=== PATIENT | male | born 2000 | race Caucasian/White ===

== ENCOUNTER 2024-03-03 10:49 | Emergency (ER) | payer SELFPAY ==
[2024-03-03 11:25] LABS: Absolute Eosinophils 0.2 K/uL (0-0.5); Absolute Monocytes 0.5 K/uL (0.1-1.3); Basophils % 0.7 % (0-1.3); Eosinophils % 2.9 % (0-4.4); Hematocrit 41.3 % (39.6-49.0); Hemoglobin 13.9 g/dL (13.6-17.9); Lymphocytes % 30.3 % (15.3-44.8); MCH 29.4 pg (27.0-35.0); MCHC 33.7 g/dL (32.0-36.0); MCV 87.2 fL (80-100); MPV 8.4 fL (7.6-11.3); Monocytes % 6.8 % (3.3-12.3); Neutrophils % 59.3 % (41.7-73.7); Platelets 302 thou/uL (152-406); RBC Red Blood Cell Count 4.74 M/uL (4.33-5.43); Red Cell Distribution Width 12.3 % (12.1-15.2)
[2024-03-03 11:44] LABS: Troponin High Sensitivity 5.4 pg/mL (<58.9)
--- NOTE | 2024-03-03 12:41 | RAD REPORT ---
EXAM DESCRIPTION: RAD - Chest Single View - 03/03/2024 12:37 pm CLINICAL HISTORY: CHEST PAIN Chest pain. COMPARISON: No comparisons FINDINGS: Portable technique limits examination quality. The lungs are grossly clear. The heart is normal in size. No displaced fractures. IMPRESSION: No acute intrathoracic process suspected.
--- NOTE | 2024-03-03 13:28 | EDPHYS ---
Physician Documentation [facility] Name: Troy Aragon Age: 23 yrs Sex: Male : 2000 Arrival Date: 03/03/2024 Time: 10:49 Bed 17 Private MD: ED Physician Madhu Haywood HPI: 03/03 12:13 This 23 yrs old Male presents to ER via EMS with complaints of chest pain. rn 12:13 The patient or guardian reports chest pain that is located primarily in the substernal rn area. The pain does not radiate. The chest pain is described as a pressure. Duration: The patient or guardian reports a single episode. Modifying factors: The symptoms are alleviated by nothing. the symptoms are aggravated by nothing. Severity of pain: At its worst the pain was mild in the emergency department the pain has improved. The patient has not experienced similar symptoms in the past. Patient reports anterior chest pressure, happened while at work. No fever or chills. No cough. No hemoptysis. Patient reports pressures slightly improving on its own. No family history of early cardiac disease. Patient has never had this before. Does not feel like acid reflux. No shortness of breath. Patient reports has anxiety but not sure if this is anxiety. No abdominal pain.. Historical: - Allergies: 13:11 Propofol; kj2 - PMHx: 13:11 Panic attack; kj2 - Immunization history:: Adult Immunizations unknown, Client reports receiving the 2nd dose of the Covid vaccine. - Infectious Disease History:: Denies. - Social history:: Smoking status: unknown. - Family history:: not pertinent. - Hospitalizations: : No recent hospitalization is reported. ROS: 12:13 Constitutional: Negative for fever, chills, and weight loss, Cardiovascular: Negative rn for palpitations, and edema, Respiratory: Negative for shortness of breath, cough, wheezing, and pleuritic chest pain, Abdomen/GI: Negative for abdominal pain, nausea, vomiting, diarrhea, and constipation, MS/Extremity: Negative for injury and deformity, Skin: Negative for injury, rash, and discoloration, Neuro: Negative for headache, weakness, numbness, tingling, and seizure, Exam: 12:13 Constitutional: This is a well developed, well nourished patient who is awake, alert, rn and in no acute distress. Chest/axilla: Normal chest wall appearance and motion. Nontender with no deformity. No lesions are appreciated. Cardiovascular: Regular rate and rhythm. No pulse deficits. Respiratory: No increased work of breathing, no retractions or nasal flaring. Abdomen/GI: Soft, non-tender MS/ Extremity: Pulses equal, no cyanosis. Neuro: Awake and alert, GCS 15 13:26 ECG was reviewed by the Attending Physician. rn Vital Signs: 11:00 BP 127 / 79; Pulse 75; Resp 20; Temp 98; Pulse Ox 100% on R/A; Weight 90.72 kg; Height kj2 5 ft. 9 in. ; Pain 4/10; 11:00 BP 127 / 79; Pulse 75; Resp 20; Temp 98; Pulse Ox 100% on R/A; Weight 90.72 kg; Height kj2 5 ft. 9 in. ; Pain 4/10; 12:01 BP 110 / 63; Pulse 96; Resp 20; Temp 98.2; Pulse Ox 98% on R/A; kj2 12:39 BP 124 / 80; Pulse 70; Resp 18; Pulse Ox 99% on R/A; kj2 13:46 BP 127 / 77; Pulse 61; Resp 17; Pulse Ox 99% on R/A; kj2 11:00 Body Mass Index 29.53 (90.72 kg, 175.26 cm) kj2 11:00 Pain Scale: Adult kj2 11:00 Pain Scale: Adult kj2 MDM: 10:58 Patient medically screened. rn 13:26 Differential diagnosis: acute myocardial infarction, acute pericarditis, anxiety, chest rn wall pain, costochondritis, gastritis, gastroesophageal reflux disease (GERD), pericarditis, pleurisy, pneumothorax. Data reviewed: vital signs, nurses notes, lab test result(s), EKG, radiologic studies, plain films, and as a result, I will discharge patient. Counseling: I had a detailed discussion with the patient and/or guardian regarding the historical points, exam findings, and any diagnostic results supporting the discharge/admit diagnosis, lab results, radiology results, the need for outpatient follow up, to return to the emergency department if symptoms worsen or persist or if there are any questions or concerns that arise at home. Special discussion: I discussed with the patient/guardian in detail that at this point there is no indication for admission to the hospital. It is understood, however, that if the symptoms persist or worsen the patient needs to return immediately for re-evaluation. ED course: No acute findings and workup. Chest x-ray negative. Normal vital signs. No oxygen requirement. ECG normal without ischemia. D-dimer negative.. 03/03 10:58 Order name: Basic Metabolic Panel; Complete Time: 12:08 rn 03/03 10:58 Order name: CBC with Diff; Complete Time: 12: rn 03/03 10:58 Order name: D-Dimer; Complete Time: 12: rn 03/03 10:58 Order name: NT PRO-BNP; Complete Time: 12: rn 03/03 10:58 Order name: Troponin HS; Complete Time: 12: rn 03/03 10:58 Order name: XRAY Chest (1 view); Complete Time: 13:20 rn 03/03 10:58 Order name: Cardiac monitoring; Complete Time: 11:36 rn 03/03 10:58 Order name: EKG - Nurse/Tech; Complete Time: 11:36 rn 03/03 10:58 Order name: IV Saline Lock; Complete Time: 11: rn 03/03 10:58 Order name: Labs collected and sent; Complete Time: : rn 03/03 10:58 Order name: O2 Per Protocol; Complete Time: : rn 03/03 10:58 Order name: O2 Sat Monitoring; Complete Time: 11:22 rn EC:26 Rate is 82 beats/min. Rhythm is regular. QRS [place] is Normal. MO interval is normal. QRS rn interval is normal. QT interval is normal. No Q waves. T waves are Normal. No ST changes noted. Clinical impression: Normal ECG. Interpreted by me. Reviewed by me. 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
--- NOTE | 2024-03-03 13:28 | ER ---
Nurse's Notes [facility] Name: Troy Aragon Age: 23 yrs Sex: Male : 2000 Arrival Date: 03/03/2024 Time: 10:49 Bed 17 Private MD: Diagnosis: Chest pain, unspecified Presentation: 03/03 11:00 Chief complaint: EMS states: chest pain, not radiating. Coronavirus screen: At this kj2 time, the client does not indicate any symptoms associated with coronavirus-19. Ebola Screen: No symptoms or risks identified at this time. 11:00 Method Of Arrival: EMS: [facility] kj2 11:00 Initial Sepsis Screen: Does the patient meet any 2 criteria? No. Patient's initial kj2 sepsis screen is negative. Does the patient have a suspected source of infection? No. Patient's initial sepsis screen is negative. Risk Assessment: Do you want to hurt yourself or someone else? Patient reports no desire to harm self or others. Onset of symptoms was March 02, 2024. 11:00 Acuity: ROBERT 3 kj2 Triage Assessment: 11:59 General: Appears in no apparent distress. Behavior is calm, cooperative. Pain: kj2 Complains of pain in chest Pain does not radiate. Pain currently is 4 out of 10 on a pain scale. Historical: - Allergies: 13:11 Propofol; kj2 - PMHx: 13:11 Panic attack; kj2 - Immunization history:: Adult Immunizations unknown, Client reports receiving the 2nd dose of the Covid vaccine. - Infectious Disease History:: Denies. - Social history:: Smoking status: unknown. - Family history:: not pertinent. - Hospitalizations: : No recent hospitalization is reported. Screenin:37 [facility] ED Fall Risk Assessment (Adult) History of falling in the last 3 months, nj1 including since admission No falls in past 3 months (0 pts) Confusion or Disorientation No (0 pts) Intoxicated or Sedated No (0 pts) Impaired Gait No (0 pts) Mobility Assist Device Used No (0 pt) Altered Elimination No (0 pt) Score/Fall Risk Level 0 - 2 = Low Risk Oriented to surroundings, Maintained a safe environment, Hourly rounding (assess needs \T\ fall precautionary measures) done. Abuse screen: Denies threats or abuse. Denies injuries from another. Nutritional screening: No deficits noted. Tuberculosis screening: No symptoms or risk factors identified. Assessment: 12:00 General: Appears see triage assessment. kj2 12:54 Reassessment: Patient appears in no apparent distress at this time. Patient and/or kj2 family updated on plan of care and expected duration. Pain level reassessed. Patient is alert, oriented x 3, equal unlabored respirations, skin warm/dry/pink. 13:46 Reassessment: Patient appears in no apparent distress at this time. Patient is alert, kj2 oriented x 3, equal unlabored respirations, skin warm/dry/pink. Vital Signs: 11:00 BP 127 / 79; Pulse 75; Resp 20; Temp 98; Pulse Ox 100% on R/A; Weight 90.72 kg; Height kj2 5 ft. 9 in. ; Pain 4/10; 11:00 BP 127 / 79; Pulse 75; Resp 20; Temp 98; Pulse Ox 100% on R/A; Weight 90.72 kg; Height kj2 5 ft. 9 in. ; Pain 4/10; 12:01 BP 110 / 63; Pulse 96; Resp 20; Temp 98.2; Pulse Ox 98% on R/A; kj2 12:39 BP 124 / 80; Pulse 70; Resp 18; Pulse Ox 99% on R/A; kj2 13:46 BP 127 / 77; Pulse 61; Resp 17; Pulse Ox 99% on R/A; kj2 11:00 Body Mass Index 29.53 (90.72 kg, 175.26 cm) kj2 11:00 Pain Scale: Adult kj2 11:00 Pain Scale: Adult kj2 ED Course: 10:58 Patient arrived in ED. rn 10:58 Madhu Haywood MD is Attending Physician. rn 11:22 Maintain EMS IV. Dressing intact. Good blood return noted. Site clean \T\ dry. Gauge \T\ nj 1 site: 20 R AC. Flushed with 10 mL NS IV is patent, with fluids infusing freely, with good blood return. 11:23 Initial lab(s) drawn, by me, sent to lab. nj1 11:36 EKG done, by ED staff, reviewed by Madhu Haywood MD. nj1 11:36 Patient has correct armband on for positive identification. Bed in low position. Call nj1 light in reach. Provided Education on: call light, fall precautions. Client placed on continuous cardiac and pulse oximetry monitoring. NIBP monitoring applied. international student advisor on. Warm blanket given. 11:55 Gunjan Pacheco, RN is Primary Nurse. kj2 11:58 Triage completed. kj2 12:01 Arm band placed on. EKG completed in triage. Results shown to MD. EKG completed in kj2 triage. Results shown to MD. 12:39 XRAY Chest (1 view) In Process Unspecified. EDMS 13:46 No provider procedures requiring assistance completed. IV discontinued, intact, kj2 bleeding controlled, No redness/swelling at site. Pressure dressing applied. Administered Medications: No medications were administered Medication: 12:01 VIS not applicable for this client. kj2 Outcome: 13:28 Discharge ordered by . rn 13:46 Discharged to home ambulatory, kj2 13:46 Condition: stable 13:46 Discharge instructions given to patient, Instructed on discharge instructions, follow up and referral plans. Demonstrated understanding of instructions, follow-up care, 13:47 Patient left the ED. kj2 Signatures: Dispatcher [employer] EDMS Madhu Haywood MD MD rn Brynn Hernandez RN RN nj1 Gunjan Pacheco, RN RN kj2 Corrections: (The following items were deleted from the chart) 13:12 13:11 Allergies: No Known Allergies; kj2 kj2
[2024-03-03 13:55] VITALS: TEMP 98.2
[2024-03-03 13:56] VITALS: O2SAT 99
[2024-03-03 13:57] VITALS: BP 127/77
== END 2024-03-03 13:47 | disposition home or self-care (01) ==
LOC: ER 10:49
DX: R07.9 Chest pain, unspecified (principal)
CPT/HCPCS: 36415; 71045; 80048; 83880; 84484; 85025; 85379; 93005; 99285